=== PATIENT | female | born 1965 | race Caucasian/White ===

== ENCOUNTER 2018-10-26 19:45 | Emergency (ER) | payer BC ==
[2018-10-26] MEDS ORDERED: EPINEPHrine/Lidocaine/Tetracai 3 ML ML TOP ONE (20:48)
[2018-10-26] MEDS ORDERED: Diphtheria,Pertussis(Acell),Tetanus Vaccine 0.5 ML Syringe IM ONE (20:49)
[2018-10-26] MEDS ORDERED: Acetaminophen 325 MG Tab PO ONE (21:51)
--- NOTE | 2018-10-26 22:25 | EDM.PDOC ---
ED HPI GENERAL MEDICAL PROBLEM - General Chief Complaint: Head Injury Stated Complaint: HIT HEAD ON CONCREATE Time Seen by Provider: 10/26/18 20:38 Source of Information: Reports: Patient History Limitations: Reports: No Limitations - History of Present Illness INITIAL COMMENTS - FREE TEXT/NARRATIVE: The patient presents with a head injury. She was walking out side her house and her dogs ran around the corner and they hit her and knocked he over. She hit her head on some pavers. She had no LOC. She does have a headache and neck pain. She has no double vision or blurred vision. She has no numbness or weakness. She has no chest pain or shortness of breath. She is unsure of her last tetanus. Onset: Sudden Duration: Minutes: Location: Reports: Head, Neck Quality: Reports: Sharp Severity: Moderate Improves with: Reports: Immobilization Worsens with: Reports: Movement Associated Symptoms: Reports: Headaches. Denies: Chest Pain, Cough, Fever/ Chills, Nausea/Vomiting, Shortness of Breath Parietal Pain Score (Numeric/FACES): 8 - Related Data Allergies Allergy/AdvReac Type Severity Reaction Status Date / Time No Known Allergies Allergy Verified 12/07/13 08:58 Social & Family History - Tobacco Use Smoking Status *Q: Never Smoker - Caffeine Use Caffeine Use: Reports: None - Recreational Drug Use Recreational Drug Use: No ED ROS GENERAL - Review of Systems Review Of Systems: See Below Constitutional: Reports: No Symptoms HEENT: Reports: No Symptoms Respiratory: Reports: No Symptoms Cardiovascular: Reports: No Symptoms Endocrine: Reports: No Symptoms GI/Abdominal: Reports: No Symptoms : Reports: No Symptoms Musculoskeletal: Reports: Neck Pain Neurological: Reports: Headache ED EXAM, HEAD INJURY - Physical Exam Exam: See Below Exam Limited By: No Limitations General Appearance: Alert, WD/WN, No Apparent Distress Head: Other (2cm lacereation to the occipital region) Eyes: Bilateral Eye: EOMI Ears: Normal External Exam Nose: Normal Inspection Neck: Tenderness (Mild tenderness to the mid cervical spine) Respiratory: No Respiratory Distress, Lungs Clear, Normal Breath Sounds Cardiovascular: Regular Rate, Rhythm, No Edema, No Murmur GI/Abdominal Exam: Soft, Non-Tender, No Organomegaly, No Mass Back Exam: Normal Inspection Extremities: Normal Inspection ED LACERATION/WOUND & TYREL PROC - Laceration/Wound Repair Head Lac/wound length in cm: 2 Appearance: Subcutaneous, Linear Anesthetic Type: Topical (LET) Skin Prep: Saline Exploration/Debridement/Repair: Wound Explored, In a Bloodless Field, Explored to Base Closed with: Laine # of Sutures: 5 Tetanus Status Addressed: Yes Complications: No Course - Vital Signs Last Recorded V/S: Last Vital Signs Temp 99 F 10/26/18 20:38 Pulse 81 10/26/18 20:38 Resp 18 10/26/18 20:38 BP 179/107 H 10/26/18 20:38 Pulse Ox 100 10/26/18 20:38 - Orders/Labs/Meds Orders: Active Orders 24 hr Category Date Time Status Vaccines to be Administered [RC] PER UNIT ROUTINE Care 10/26/18 20:49 Active Cervical Spine wo Cont [CT] Stat Exams 10/26/18 20:49 Taken Head wo Cont [CT] Stat Exams 10/26/18 20:48 Taken Meds: Medications Discontinued Medications Generic Name Dose Route Start Last Admin Trade Name Freq PRN Reason Stop Dose Admin Acetaminophen 975 mg 10/26/18 21:51 10/26/18 22:04 Tylenol PO 10/26/18 21:52 975 mg NOW ONE Administration Diphtheria/Tetanus/Acell Pertussis 0.5 ml 10/26/18 20:49 10/26/18 20:56 Adacel IM 10/26/18 20:50 0.5 ml .ONCE ONE Administration Lidocaine/Tetracaine 3 ml 10/26/18 20:48 10/26/18 20:57 Let Soln TOP 10/26/18 20:49 3 ml ONETIME ONE Administration - Re-Assessments/Exams Free Text/Narrative Re-Assessment/Exam: 10/26/18 22:[address] of her head and cervical spine and there is nothing acute seen. I updated her tetanus and I closed the laceration with aline. Departure - Departure Time of Disposition: 22:30 Disposition: Home, Self-Care 01 Condition: Good Clinical Impression: Concussion injury of brain Fall Qualifiers: Encounter type: initial encounter Qualified Code(s): W19.XXXA - Unspecified fall, initial encounter Scalp laceration Qualifiers: Encounter type: initial encounter Qualified Code(s): S01.01XA - Laceration without foreign body of scalp, initial encounter - Discharge Information *PRESCRIPTION DRUG MONITORING PROGRAM REVIEWED*: Not Applicable *COPY OF PRESCRIPTION DRUG MONITORING REPORT IN PATIENT RACHAEL: Not Applicable Referrals: Funmi Sky MD [Primary Care Provider] - 1 Week Additional Instructions: Clean the wound with warm soapy water 2 times per day and put some antibiotic ointment on it. Have the aline removed in 1 week. Look for any signs of infection such as redness, swelling, pain or drainage. If you seen any of these signs, please return because you may need oral antbiotics. Please return if you have worsening headache, nausea, vomiting or if you are not acting right. - My Orders Last 24 Hours: My Active Orders 10/26/18 20:48 Head wo Cont [CT] Stat 10/26/18 20:49 Vaccines to be Administered [RC] PER UNIT ROUTINE Cervical Spine wo Cont [CT] Stat - Assessment/Plan Last 24 Hours: My Active Orders 10/26/18 20:48 Head wo Cont [CT] Stat 10/26/18 20:49 Vaccines to be Administered [RC] PER UNIT ROUTINE Cervical Spine wo Cont [CT] Stat
--- NOTE | 2018-10-27 07:30 | CT ---
Head CT Technique: Multiple axial sections through the brain were obtained. Intravenous contrast was not utilized. Comparison: No prior intracranial imaging is available. Findings: Ventricles along with basal cisterns and sulci over the convexities are within normal limits for the patient's age. No abnormal parenchymal densities are seen. No evidence of intracranial hemorrhage. No midline shift or mass effect is seen. Bone window settings were reviewed which show no acute calvarial abnormality. Impression: 1. Nothing acute is identified on noncontrast head CT exam. Diagnostic code #1 I agree with preliminary report from [facility], finalized on 10/26/18, 10:49 PM Central Time
--- NOTE | 2018-10-27 07:30 | CT ---
CT cervical spine Technique: Multiple axial sections were obtained from above C1 inferiorly to the mid T3 level. Reconstructed sagittal and coronal images were reviewed. Comparison: No previous study. Findings: Mild disc space narrowing is noted at C3-C4, C4-C5, C5-6 and C6-C7. Mild posterior osteophytes are noted at C3-C4 and C4-C5. Anterior osteophytes are seen which are most prominent at C5-C6. Degenerative apophyseal change is seen which is most prominent within the lower cervical spine and upper thoracic spine. No bony central or bony neural foraminal stenosis is seen. No fracture is seen. Slightly abnormal cervical curvature is identified most likely due to degenerative change. Slight spurring is noted within the uncovertebral joints at C3-C4 and C4-C5. Visualized paranasal sinuses as well as mastoid sinuses are clear. Visualized lung apices are clear. Impression: 1. Degenerative change as noted above. 2. No acute abnormality is identified on CT study of the cervical spine. Diagnostic code #2 I agree with preliminary report from [facility], finalized on 10/26/18, 10:43 PM Central Time
== END 2018-10-26 22:34 | disposition home or self-care (01) ==
LOC: JD.ED 19:45
DX: S06.0X0A Concussion without loss of consciousness, initial encounter (principal); S01.01XA Laceration without foreign body of scalp, initial encounter; Z23 Encounter for immunization; W22.8XXA Striking against or struck by other objects, initial encounter
CPT/HCPCS: 12001; 70450; 72125; 90471; 90700; 99283; A9270; 12002; 99282

== ENCOUNTER 2018-11-03 13:37 | Emergency (ER) | payer BC | END 2018-11-03 13:43 | disposition home or self-care (01) | LOC: JD.ED 13:37 | DX: S01.01XD Laceration without foreign body of scalp, subsequent encounter (principal); W22.8XXD Striking against or struck by other objects, subsequent encounter ==